=== PATIENT | male | born 1960 | race Caucasian/White ===

== ENCOUNTER → 2024-01-07 18:43 | Outpatient (CLI) | payer OTHER, SELFPAY ==
--- NOTE | 2024-01-07 18:50 | DI.MRI.S_ITS ---
PROCEDURE: MR LUMBAR SPINE WO CON INDICATIONS: Spinal stenosis lumbar region TECHNIQUE: Noncontrast sagittal T1 spin echo and T2 fast echo, sagittal STIR, and T2 fast spin echo through the lumbar spine. In cases with scoliosis, additional coronal T2 fast spin echo may be performed. COMPARISON: [facility] [place], CR, XR LUMBAR SPINE WITH OBLIQUES PLUS FLEXION EXTENSION, 12/30/2023, 15:01. FINDINGS: Image quality: Excellent. Alignment and Curvature: Mild levoconvex scoliotic curvature is noted. Bone Marrow: Marrow is of normal overall signal. No acute vertebral body compression fractures. Spinal Cord: Conus medullaris terminates at the L1 level. Visualized cord demonstrates normal signal and size. Paraspinous Soft Tissues: No paravertebral masses. T12-L1: Mild loss of disc height is seen. Loss of disc signal is seen. Moderate disc bulge is seen, with a central disc extrusion, with inferior migration of the disc material, as on series 2, image 8. The extruded disc material measures 12 mm craniocaudal. There is mild right-sided and moderate left-sided neural foraminal narrowing. At least moderate central canal narrowing is seen. Mass effect is seen upon the conus medullaris, as on series 6, image 6. L1-L2: Mild loss of disc height is seen. Loss of disc signal is seen. Moderate disc bulge is seen, which is eccentric to the left. There is a mild central disc extrusion, as on series 2, image 9. Mild facet joint hypertrophy is seen. There is moderate to severe right-sided and at least moderate left-sided neural foraminal narrowing. There is a degree of compression seen upon the exiting nerve roots. Moderate to severe central canal narrowing is seen, as on series 6, image 11. L2-L3: At least moderate loss of disc height and disc signal can be seen. At least moderate disc bulge is seen, which is eccentric to the right side. Mild facet joint hypertrophy is seen. There is at least moderate bilateral neural foraminal narrowing, right worse than left. There is a degree of compression seen upon the exiting right L2 nerve root. At least moderate central canal narrowing is seen, as on series 6, image 16. L3-L4: Moderate loss of disc height is seen. Loss of disc signal is seen. Moderate disc bulge is seen, which is eccentric to the right. There is a superimposed central disc protrusion. Moderate facet joint hypertrophy is seen. There is at least moderate left-sided and moderate right-sided neural foraminal narrowing. There is severe central canal narrowing, as on series 6, image 21. L4-L5: Moderate to severe loss of disc height and disc signal can be seen. Reactive marrow endplate changes are seen, which are hyperintense on T1-weighted and T2-weighted imaging and most consistent with fatty metaplasia (Modic type II changes). At least moderate disc bulge is seen, with a central disc protrusion. There is a focal annular fissure seen posteriorly. There is moderate right-sided and moderate to prominent left-sided facet hypertrophy. There is at least moderate bilateral neural foraminal narrowing, left worse than right. There is a degree of compression seen upon the exiting nerve roots. There is moderate to severe central canal narrowing, as on series 6, image 26. L5-S1: Mild loss of disc height is seen. Loss of disc signal is seen. Moderate disc bulge is seen, with a central/left disc extrusion, with mild inferior migration of the disc material. Moderate facet joint hypertrophy is seen. There is at least moderate bilateral neural foraminal narrowing, left worse than right. There is a degree of compression seen upon the exiting nerve roots. Mild central canal narrowing is seen. IMPRESSION: Multiple levels of significant lumbar spine degenerative change can be seen, including disc extrusions. Several levels of significant central canal narrowing can be seen. Several sites of significant neural foraminal narrowing can be seen, with associated exiting nerve root compression. Dictated by: Dre Barbour M.D. on 01/08/2024 at 10:59 Approved by: Dre Barbour M.D. on 01/08/2024 at 11:04
== END ==
PROVIDERS: Referring Provider Physical Medicine & Rehabilitation Pain Medicine; Visit Provider Physical Medicine & Rehabilitation Pain Medicine
DX: M48.061 Spinal stenosis, lumbar region without neurogenic claudication (principal); M48.07 Spinal stenosis, lumbosacral region; M47.816 Spondylosis without myelopathy or radiculopathy, lumbar region; M47.817 Spondylosis without myelopathy or radiculopathy, lumbosacral region; M51.27 Other intervertebral disc displacement, lumbosacral region; M51.26 Other intervertebral disc displacement, lumbar region
CPT/HCPCS: 72148